=== PATIENT | male | born 1980 | race Caucasian/White ===

== ENCOUNTER 2023-03-29 22:23 | Outpatient (REF) | payer BC, SELFPAY ==
[2023-03-29 21:12] LABS: Hemoglobin A1C 5.9 % (<5.7)
[2023-03-29 21:20] LABS: ALT 52 U/L (16-63); AST 26 U/L (15-37); Albumin 3.6 g/dL (3.4-5.0); Alkaline Phosphatase 86 U/L (46-116); Anion Gap 6.5 mmol/L (3-11); BUN 12 mg/dL (7-18); Bilirubin, Total 0.3 mg/dL (0.2-1.0); CO2 29.5 mmol/L (21.0-32.0); CREATININE 0.8 mg/dL (0.70-1.30); Calcium 8.7 mg/dL (8.5-10.1); Calculated LDL 125 mg/dL (<100); Chloride 104 mmol/L (98-107); Cholesterol 189 mg/dL (<200); Estimated GFR 114.02 (mL/min/1.73m2); Glucose 127 mg/dL (74-106); HDL Cholesterol 47 mg/dL (40-60); Potassium 3.7 mmol/L (3.5-5.1); Sodium 140 mmol/L (136-145); TSH (W/Ref FT4) 2.03 uIU/mL (0.36-3.74); Total Protein 7.8 g/dL (6.4-8.2); Triglyceride 88 mg/dL (<150)
== END 2023-03-29 22:24 | disposition home or self-care (01) ==
LOC: NCHCN 22:23
PROVIDERS: PCP Nurse Practitioner Family; Visit Provider Nurse Practitioner Family
DX: R73.03 Prediabetes (principal); R63.5 Abnormal weight gain; E66.01 Morbid (severe) obesity due to excess calories; Z91.89 Other specified personal risk factors, not elsewhere classified
CPT/HCPCS: 80053; 80061; 83036; 84443

== ENCOUNTER 2024-10-07 11:45 | Outpatient (REF) | payer BC, SELFPAY ==
[2024-10-07 16:02] LABS: Hemoglobin A1C 5.6 % (<5.7)
[2024-10-07 16:46] LABS: ALT 54 U/L (16-63); AST 30 U/L (15-37); Albumin 3.8 g/dL (3.4-5.0); Alkaline Phosphatase 110 U/L (46-116); Anion Gap 11.3 mmol/L (3-11); BUN 12 mg/dL (7-18); Bilirubin, Total 0.47 mg/dL (0.2-1.0); CO2 26.7 mmol/L (21.0-32.0); CREATININE 0.9 mg/dL (0.70-1.30); Calcium 9.6 mg/dL (8.5-10.1); Calculated LDL 127 mg/dL (<100); Chloride 105 mmol/L (98-107); Cholesterol 195 mg/dL (<200); Estimated GFR 108.68 (mL/min/1.73m2); Glucose 113 mg/dL (74-106); HDL Cholesterol 46 mg/dL (40-60); Potassium 4.2 mmol/L (3.5-5.1); Sodium 143 mmol/L (136-145); Total Protein 7.8 g/dL (6.4-8.2); Triglyceride 111 mg/dL (<150)
[2024-10-07 23:17] LABS: HIV-1/2 Ag & Ab Screen Negative (Negative)
[2024-10-07 23:21] LABS: Hepatitis C Ab w Rflx HCV PCR Negative (Negative)
== END 2024-10-07 11:46 | disposition home or self-care (01) ==
LOC: NCHCN 11:45
PROVIDERS: PCP Nurse Practitioner Family; Visit Provider Nurse Practitioner Family
DX: Z00.00 Encounter for general adult medical examination without abnormal findings (principal)
CPT/HCPCS: 80053; 80061; 86803; 87389; 83036; 84443